=== PATIENT | female | born 1955 | race Two or more races ===

== ENCOUNTER 2018-06-24 01:49 | Emergency (ER) | payer OTHER ==
[~2018-06-24] VITALS: Ht 162.6 cm; Wt 90.7 kg
--- NOTE | 2018-06-24 01:59 | NUR ---
PT BIB [facility] WITH A C/O RAPID HEART RATE. PT IS ON THE MONITOR AND CONTINUOUS PULSE OX. PT DENIES TAKING ANY MEDICATION ON A DAILY BASIS. PT IS SLIGHTLY TACHY AT 111. PT IS DOING "YOGA BREATHING". PT APPEARS ANXIOUS.
[2018-06-24] MEDS ORDERED: LORAZEPAM 1 MG TABLET ONE (02:16)
[2018-06-24] MEDS ORDERED: LORAZEPAM 1 MG TABLET PO ONE (02:30)
--- NOTE | 2018-06-24 02:36 | NUR ---
20G IV STARTED IN RUE. BLOOD DRAWN AND SENT TO LAB.
[2018-06-24 02:44] LABS: BASOPHILS % (AUTO) 0.5 % (0.0-2.0); EOSINOPHILS % (AUTO) 1.8 % (0.0-6.0); HEMATOCRIT 39 % (33-45); HEMOGLOBIN 13.1 g/dL (11.5-14.8); LYMPHOCYTES # (AUTO) 1.7 /CMM (0.8-4.8); MEAN CORPUSCULAR HGB CONC 34 g/dl (31.0-36.0); MEAN CORPUSCULAR VOLUME 83 fL (82-100); MONOCYTES # (AUTO) 0.4 /CMM (0.1-1.30); MONOCYTES % (AUTO) 5.1 % (2.0-12.0); NEUTROPHILS # (AUTO) 4.8 /CMM (1.8-8.9); NEUTROPHILS % (AUTO) 68.6 % (43.0-81.0); PLATELET COUNT (AUTO) 266 /CMM (150-450); RED BLOOD CELL COUNT(AUTO) 4.72 MIL/uL (4.0-5.2)
[2018-06-24 02:59] LABS: CALCIUM, SERUM 9.1 mg/dL (8.5-10.1); CARBON DIOXIDE 25 mmol/L (21-32); CHLORIDE 109 mmol/L (98-107); CREATININE 0.8 mg/dL (0.6-1.3); GLUCOSE 174 mg/dL (74-106); POTASSIUM 3.3 mmol/L (3.5-5.1); SODIUM SERUM 145 mmol/L (136-145); UREA NITROGEN, BLOOD 25 mg/dL (7-18)
[2018-06-24 03:13] LABS: ALANINE AMINOTRANSFERASE 18 U/L (12-78); ALBUMIN 3.4 g/dL (3.4-5.0); ALKALINE PHOSPHATASE 86 U/L (46-116); ASPARTATE AMINOTRANSFERASE 13 U/L (15-37); B-TYPE NATRIURETIC PEPTIDE 21 PG/ML (0-125); BILIRUBIN,DIRECT 0.1 mg/dL (0.0-0.2); BILIRUBIN,TOTAL 0.4 mg/dL (0.2-1.0); TOTAL PROTEIN, SERUM 6.5 g/dL (6.4-8.2)
--- NOTE | 2018-06-24 03:16 | NUR ---
CXR DONE AT THE BEDSIDE.
--- NOTE | 2018-06-24 03:27 | NUR ---
PT APPEARS TO BE RESTING COMFORTABLY. PT STATED THAT SHE STILL FEELS LIKE HER HEART IS RACING. PT'S HR IS 107.
[2018-06-24] MEDS ORDERED: IV NS 0.9% 1,000 ML BAG IV ONE (04:00)
--- NOTE | 2018-06-24 06:59 | NUR ---
PT APPEARS TO BE RESTING COMFORTABLY WITH NO S/S OF PAIN OR DISTRESS. PT STATED THAT SHE FEELS BETTER AND WOULD LIKE TO GO HOME.
[2018-06-24] MEDS ORDERED: POTASSIUM CHLORIDE 20 MEQ TAB.PRT.SR PO ONE (07:30)
--- NOTE | 2018-06-24 07:38 | NUR ---
IV removed. Catheter intact and site benign. Pressure and 4x4 applied to site. No bleeding noted.Patient discharged to home in stable condition. Written and verbal after care instructions given. Patient verbalizes understanding of instruction AND RX. PT CALLED [facility] AND IS TAKING IT HOME. VSS. NAD NOTED.
[2018-06-24 07:40] VITALS: BP 128/56
== END 2018-06-24 07:43 | disposition home or self-care (01) ==
LOC: ER 01:51
DX: F41.9 Anxiety disorder, unspecified (principal); R00.0 Tachycardia, unspecified; E87.6 Hypokalemia; E86.0 Dehydration; F41.0 Panic disorder [episodic paroxysmal anxiety]; Z88.5 Allergy status to narcotic agent; Z60.2 Problems related to living alone
CPT/HCPCS: 36415; 71045-TC; 80048-TC; 80076-TC; 83880; 84443-TC; 84484-TC; 85025-TC; 85730-TC; J7030